=== PATIENT | female | born 1990 | race Caucasian/White ===

== ENCOUNTER 2020-06-01 07:07 | Emergency (ER) | payer OTHER, SELFPAY ==
--- NOTE | ~2020-06-01 | US_ITS ---
EXAMINATION: US venous doppler [facility] DATE: 06/01/2020 07:52 INDICATION: Left lower limb pain TECHNIQUE: Whitehead scale images without and with compression and Doppler images of the left lower extrem ity veins were obtained. COMPARISON: 07/08/2017 FINDINGS: The left common femoral vein, profunda femoral vein, femoral vein, popliteal vein, peroneal trunk, posterior tibial veins, and greater saphenous vein are patent. No Castle's cyst is identified. IMPRESSION: 1. Patent left lower extremity veins. No evidence of deep venous thrombosis. Reviewed, dictated and finalized at location A. SALES PROFESSIONAL
[2020-06-01 07:12] VITALS: BP 138/91; PULSE 129; RESP 16; TEMP 36.3; O2SAT 100
--- NOTE | 2020-06-01 08:21 | ED.GENADULT ---
HPI - General Adult General Chief complaint: Extremity Problem,Nontraumatic Stated complaint: calf pain x 2 weeks Time Seen by Provider: 06/01/20 07:16 History of Present Illness HPI narrative: Patient is a 29-year-old female who presents ER with discomfort behind her left knee. She reports she has been feeling a burning sensation. No swelling of the rest of the leg. No chest pain or shortness of breath at this time. No history of DVT. No rash. No alleviating factors. Called her insurance company and they told her to come to the ER. Related Data Home Medications Medication Instructions Recorded Confirmed No Home Medications 06/01/20 06/01/20 Allergies Allergy/AdvReac Type Severity Reaction Status Date / Time ibuprofen Allergy Severe THROAT Verified 01/10/18 06:58 SWELLS aspirin Allergy Intermediate Verified 01/10/18 06:58 Review of Systems Constitutional: Constitutional: Denies chills and Denies fever(s) Cardiovascular: Cardiovascular: Denies chest pain, Denies rapid heart rate and Denies radiating jaw, neck or arm pain Respiratory: Respiratory: Denies cough and Denies dyspnea Musculoskeletal: Musculoskeletal: Reports arthralgias and Reports joint swelling Psychiatric: Psychiatric: Reports anxiety PMFSH Past Medical History Medical History (Updated 06/01/20 @ 08:36 by Masoud Akers MD) Asthma Surgical History Surgical History (Updated 06/01/20 @ 08:23 by Masoud Akers MD) No pertinent past surgical history Exam Narrative: Exam Narrative: GENERAL: Well-appearing, well-nourished, and in no acute distress. HEAD: Normocephalic, atraumatic. CHEST: Clear to auscultation. No respiratory distress. HEART: Regular rate and rhythm. Normal peripheral pulses. EXTREMITIES: Normal range of motion. No edema. Mild swelling left posterior popliteal fossa when compared to the right side. SKIN: Warm, dry, no rash. NEURO: Alert and oriented x3. PSYCH: Normal mood and affect. Course Course Emergency Course: No DVT or Castle's cyst. Patient heart rate earlier in the visit likely elevated due to anxiety and has not normalized. No chest pain or shortness of breath. Discussed wearing an Alfredo wrap for compressive knee sleeve. Vital Signs Vital signs: Vital Signs Temperature 97.3 F L 06/01/20 07:12 Pulse Rate 129 H 06/01/20 07:12 Respiratory Rate 16 06/01/20 07:12 Blood Pressure 138/91 H 06/01/20 07:12 Pulse Oximetry 100 06/01/20 07:12 Temperature 97.3 F L 06/01/20 07:12 Pulse Rate 129 H 06/01/20 07:12 Respiratory Rate 16 06/01/20 07:12 Blood Pressure 138/91 H 06/01/20 07:12 Pulse Oximetry 100 06/01/20 07:12 Medical Decision Making Vital Signs Vital Signs: Vital Signs Temperature 97.3 F L 06/01/20 07:12 Pulse Rate 129 H 06/01/20 07:12 Respiratory Rate 16 06/01/20 07:12 Blood Pressure 138/91 H 06/01/20 07:12 Pulse Oximetry 100 06/01/20 07:12 Temperature 97.3 F L 06/01/20 07:12 Pulse Rate 129 H 06/01/20 07:12 Respiratory Rate 16 06/01/20 07:12 Blood Pressure 138/91 H 06/01/20 07:12 Pulse Oximetry 100 06/01/20 07:12 Imaging Data Radiologist's impression: ITS Impressions Venous Doppler Study 06/01/20 08:01 IMPRESSION: 1. Patent left lower extremity veins. No evidence of deep venous thrombosis. Discharge Plan Discharge Clinical Impression: Calf pain Patient Disposition: Home, Self-Care Condition: Stable Instructions: Muscle Strain (ED) Additional Instructions: The pain in your calf is likely related to a mild muscle strain. There is no evidence of DVT or Castle's cyst on your ultrasound. Wear compressive knee sleeve or Alfredo wrap to help with your discomfort and take Tylenol for pain. Prescriptions: No Action No Home Medications RF: 0 Follow-up/Referrals: Niall,Andria Dobbins MD [Primary Care Provider] - 1 Week
[2020-06-01 08:23] VITALS: BP 115/83; PULSE 98; RESP 16; O2SAT 100
== END 2020-06-01 08:59 | disposition home or self-care (01) ==
PROVIDERS: Emergency Provider Emergency Medicine; PCP Family Medicine
DX: M79.662 Pain in left lower leg (principal); J45.909 Unspecified asthma, uncomplicated
CPT/HCPCS: 93971; 99284

== ENCOUNTER 2021-09-27 06:12 | Emergency (ER) | payer SELFPAY ==
[2021-09-27] VITALS (28 sets, daily range): BP systolic 90–126; BP diastolic 56–81; PULSE 77–109; RESP 12–18; TEMP 37.2; O2SAT 97–100
--- NOTE | ~2021-09-27 | XR_ITS ---
EXAMINATION: XR chest 1V portable DATE: 09/27/2021 06:44 INDICATION: Chest pain TECHNIQUE: frontal view of the chest was obtained. COMPARISON: Chest radiograph dated 02/27/2017 FINDINGS: The lungs remain clear with no focal airspace opacities, pulmonary edema, pleural effusion or pneumot horax. The cardiomediastinal silhouette is normal. The patient is rotated slightly towards right whic h accentuates a mild thoracic levocurvature. IMPRESSION: 1. No acute cardiopulmonary disease. Reviewed, dictated and finalized at location A.
--- NOTE | ~2021-09-27 | CT_ITS ---
EXAMINATION: CTA chest PE protocol DATE: 09/27/2021 09:09 INDICATION: Chest pain, elevated d-dimer. TECHNIQUE: Computed tomography angiography (CTA) of the chest was performed with 100 mL Omnipaque-350 intravenous contrast timed to evaluate the pulmonary arteries. Coronal maximum intensity projection 3D-reconstructions were created by the technologist. Automated exposure control and iterative reconst ruction technique were employed. Exam dose: 137.43 mGy-cm total exam DLP. COMPARISON: 09/27/2021 portable AP chest FINDINGS: There is diagnostic contrast enhancement of the pulmonary arteries and no evidence of pulmo nary embolism. No thoracic aortic aneurysm or dissection. Normal heart size. No pericardial effusion. No hilar or mediastinal mass lesion or lymphadenopathy. No pulmonary infiltrate or consolidation or pulmonary mass lesion. Included skeletal structures are unremarkable. No suspicious osteolytic or osteoblastic lesions. Minimal degenerative spurring and mild levoscoliosi s of the thoracic spine. IMPRESSION: No evidence of pulmonary embolism Reviewed, dictated and finalized at Location [facility]. Reviewed, dictated and finalized at location A.
--- NOTE | 2021-09-27 06:30 | ECG_ITS ---
Measurements Intervals [place] Rate: 92 P: 73 DE: 153 QRS: 75 QRSD: 86 T: 54 QT: 330 QTc: 408 Interpretive Statements SINUS RHYTHM WITH MARKED SINUS ARRHYTHMIA LEFT ATRIAL ENLARGEMENT INCOMPLETE RIGHT BUNDLE BRANCH BLOCK BASELINE WANDER- V3-V5 BORDERLINE ECG Electronically Signed On 09-27-2021 8:13:57 CDT by Rosas Leavitt D.O.
[2021-09-27 06:51] LABS: Basophils Absolute Auto 0.1 K/mm3 (0.0-0.1); Eosinophils Absolute Auto 0.1 K/mm3 (0-0.3); Eosinophils Percent Auto 1.2 % (0-4.4); Hematocrit 43.1 % (37.0-47.0); Hemoglobin 14.3 g/dL (12.0-15.0); Immature Granulocyte Absolute 0.02 K/mm3 (0.00-0.031); Immature Granulocyte Percent A 0.2 % (0-0.5); Lymphocytes Absolute Auto 1.96 K/mm3 (0.9-3.2); Lymphocytes Percent Auto 23.8 % (18.3-44.2); Mean Corpuscular HGB Conc 33.2 g/dl (32-36); Mean Corpuscular Hemoglobin 31.3 pg (26-34); Mean Corpuscular Volume 94.3 fl (80-100); Mean Platelet Volume 9.7 fl (7.4-10.4); Monocytes Absolute Auto 1.5 K/mm3 (0.1-0.6); Monocytes Percent Auto 18.5 % (2.6-8.5); Neutrophils Absolute Auto 4.6 K/mm3 (1.3-6.7); Neutrophils Percent Auto 55.3 % (45.5-73.1); Platelet Count Result 194 k/mm3 (150-375); Red Blood Count 4.57 M/mm3 (4.2-5.4); White Blood Count 8.3 K/mm3 (4.5-10.0)
[2021-09-27 06:55] LABS: INR 1.1; Prothrombin Time 13.9 Seconds (11.1-14.7)
[2021-09-27 06:56] LABS: Partial Thromboplastin Time 32.9 SECONDS (22.3-36.8)
[2021-09-27 07:26] LABS: Alanine Aminotransferase 21 U/L (6-35); Albumin Level 4.9 g/dL (3.5-5.1); Alkaline Phosphatase 80 U/L (38-126); Anion Gap 7 mmol/L (8-16); Aspartate Amino Transferase 34 U/L (14-36); Bilirubin,Total 0.3 mg/dL (0.2-1.3); Blood Urea Nitrogen 7 mg/dL (7-17); Calcium 8.9 mg/dL (8.4-10.2); Carbon Dioxide 24 mmol/L (22-30); Chloride 106 mmol/L (98-107); Estimated CRCL calculation 102 ml/min; Estimated Glomerular Filt Rate > 60; Glucose 103 mg/dL (65-110); Lipase 49 U/L (23-300); Potassium 3.9 mmol/L (3.4-5.0); Sodium 137 mmol/L (137-145)
--- NOTE | 2021-09-27 07:34 | ED.CHESTPAIN ---
HPI - Chest Pain General Chief Complaint: Chest Pain Stated Complaint: chest pain Time Seen by Provider: 09/27/21 07:03 Source: patient History of Present Illness HPI narrative: Pain presents with multiple complaints her primary concern is her left-sided chest pain. She has had intermittent chest pain going on since yesterday its been constant since last night. Describes as an achy sensation primarily on the left side of her chest radiating to her shoulder worse with deep inspiration. Notes yesterday she noticed it more when with physical activity but since last night it has been the same with rest and physical activity. She also reports posterior neck pain and headache for the past few days reports subjective fevers at home. Reports cough and shortness of breath. Reports a coworker had neck pain headache and fevers as well and has been hospitalized and unsure as to what the diagnosis is. Patient denies any nausea vomiting or diaphoresis. She denies any significant family history. She denies any recent hospitalizations or surgeries. She denies prior history of blood clots or any estrogen therapy use. Patient reports overall she is feeling improved after she took some Tylenol this morning Related Data Home Medications Medication Instructions Recorded Confirmed No Home Medications 06/01/20 06/01/20 Allergies Allergy/AdvReac Type Severity Reaction Status Date / Time ibuprofen Allergy Severe THROAT Verified 01/10/18 06:58 ERWIN Review of Systems Review of Systems: CONSTITUTIONAL: Reports fevers and chills EYES: Denies visual changes, redness, or discharge. ENT: Denies rhinorrhea, congestion, sore throat, or otalgia. CARDIOVASCULAR: Denies palpitations, or edema. RESPIRATORY: Shortness of breath GASTROINTESTINAL: Denies abdominal pain, nausea, vomiting, or diarrhea. GENITOURINARY: Denies dysuria or hematuria. SKIN: Denies rash or itching. MUSCULOSKELETAL: Denies back pain, joint pain, or myalgia. NEUROLOGIC: Denies numbness, dizziness, or weakness. PSYCHIATRIC: Denies anxiety or depression. All systems reviewed & are unremarkable except as noted in HPI and below PMFSH Past Medical History Medical History Asthma Surgical History Surgical History No pertinent past surgical history Social History Social History (Updated 09/27/21 @ 07:37 by Fredrick Padgett MD) Smoking status: Never smoker Substance use: never Exam Narrative: GENERAL: Well-appearing, well-nourished, and in no acute distress. HEAD: Normocephalic, atraumatic. EYES: PERRLA and EOMI. ENT: Nares clear, no rhinorrhea or epistaxis. Mucous membranes moist. NECK: Supple. No masses. No JVD CHEST: Clear to auscultation. No respiratory distress. No wheezes rales or rhonchi HEART: Regular rate and rhythm. No murmur heard. Normal peripheral pulses. ABDOMEN: Soft, nontender, nondistended, normal active bowel sounds. EXTREMITIES: Normal range of motion. No edema. SKIN: Warm, dry, no rash. NEURO: No focal deficits. Alert and oriented x3. PSYCH: Normal mood and affect. Course Reevaluation(s) Reevaluation #1: Patient resting company results feeling improved results plan reviewed with patient. Patient is comfortable outpatient plan. Date: 09/27/21 Time: 09:37 Vital Signs Vital signs: Vital Signs Temperature 37.2 C 09/27/21 06:15 Pulse Rate 106 H 09/27/21 06:15 Respiratory Rate 18 09/27/21 06:15 Blood Pressure 126/81 09/27/21 06:15 Pulse Oximetry 100 09/27/21 06:15 Oxygen Delivery Room Air 09/27/21 06:15 Temperature 37.2 C 09/27/21 06:15 Pulse Rate 86 09/27/21 09:30 Respiratory Rate 12 09/27/21 09:30 Blood Pressure 99/62 L 09/27/21 09:48 Pulse Oximetry 100 09/27/21 09:30 Oxygen Delivery Room Air 09/27/21 06:43 MDM - Chest Pain MDM Narrative Medical decision making narrativ
[2021-09-27 07:38] LABS: Troponin I < 0.012 ng/mL (0.000-0.034)
[2021-09-27 08:04] LABS: SARS-CoV-2 RNA PCR Negative
[2021-09-27 08:11] LABS: D Dimer 0.87 ug/mL (<0.48)
[2021-09-27] MEDS: SODIUM CHLORIDE 0.9% IV 1,000 ML 999 ML IV CONT (08:51)
--- NOTE | 2021-09-27 09:02 | PC.NURSE ---
Pt to CT.
== END 2021-09-27 09:57 | disposition home or self-care (01) ==
PROVIDERS: Emergency Medicine; Emergency Provider Emergency Medicine; PCP Family Medicine
DX: R51.9 Headache, unspecified (principal); R07.9 Chest pain, unspecified; J45.909 Unspecified asthma, uncomplicated; Z20.822 Contact with and (suspected) exposure to COVID-19
CPT/HCPCS: 36415; 71045; 71275; 80053; 81025; 83690; 84484; 85025; 85380; 85610; 85730; 93005; 96360; 99284; C9803; J7030; Q9967; U0003; U0005

== ENCOUNTER 2022-10-16 01:04 | Emergency (ER) | payer OTHER, BC, MEDICAID, SELFPAY ==
[2022-10-16 01:09] VITALS: BP 112/90; PULSE 83; RESP 18; TEMP 36.6; O2SAT 100
[2022-10-16 02:48] VITALS: O2SAT 100
[2022-10-16 03:00] VITALS: O2SAT 100
[2022-10-16 03:15] VITALS: O2SAT 100
[2022-10-16 03:30] VITALS: O2SAT 100
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
[2022-10-16 04:11] VITALS: O2SAT 100
== END 2022-10-16 04:20 | disposition home or self-care (01) ==
PROVIDERS: Emergency Provider Preventive Medicine Aerospace Medicine; PCP Family Medicine
DX: S06.0X0A Concussion without loss of consciousness, initial encounter (principal); S80.11XA Contusion of right lower leg, initial encounter; J45.909 Unspecified asthma, uncomplicated; V49.40XA Driver injured in collision with unspecified motor vehicles in traffic accident, initial encounter
CPT/HCPCS: 99282

== ENCOUNTER 2023-07-26 03:07 | Emergency (ER) | payer BC, MEDICAID, SELFPAY ==
[2023-07-26 03:18] VITALS: BP 130/81; PULSE 108; RESP 16; TEMP 36.7; O2SAT 100
--- NOTE | 2023-07-26 03:48 | ED.GENADULT ---
HPI - General Adult General Chief complaint: Urogenital-Female Stated complaint: urinary pain, urgency, frequency Time Seen by Provider: 07/26/23 03:15 History of Present Illness HPI narrative: patient 32-year-old female who presents emergency department with chief complaint of dysuria. The patient reports that for the last day and half she has been having urinary frequency and burning with urination the patient reports he has had prior issues with urinary tract infections in the past with the last 1 being about 6 months ago Related Data Allergies Allergy/AdvReac Type Severity Reaction Status Date / Time ibuprofen Allergy Severe THROAT Verified 07/26/23 03:08 ERWIN Review of Systems Review of Systems: A 10 system review of systems was completed on the patient and is negative except for what is stated in the HPI. Nursing and ancillary documentation was reviewed. PMFSH Past Medical History Medical History Asthma Surgical History Surgical History No pertinent past surgical history Social History Social History Smoking status: Never smoker Substance use: never Living arrangements: with family Exam Narrative: GENERAL: Well-appearing, well-nourished, and in no acute distress. HEAD: Normocephalic, atraumatic. EYES: PERRLA and EOMI. ENT: Nares clear, no rhinorrhea or epistaxis. Mucous membranes moist. NECK: Supple. CHEST: Clear to auscultation. No respiratory distress. HEART: Regular rate and rhythm. No murmur heard. Normal peripheral pulses. ABDOMEN: Soft, nontender, nondistended, normal active bowel sounds. EXTREMITIES: Normal range of motion. No edema. SKIN: Warm, dry, no rash. NEURO: No focal deficits. Alert and oriented x3. PSYCH: Normal mood and affect. Course Vital Signs Vital signs: Vital Signs Temperature 36.7 C 07/26/23 03:18 Pulse Rate 108 H 07/26/23 03:18 Respiratory Rate 16 07/26/23 03:18 Blood Pressure 130/81 07/26/23 03:18 Pulse Oximetry 100 07/26/23 03:18 Oxygen Delivery Room Air 07/26/23 03:18 Temperature 36.7 C 07/26/23 03:18 Pulse Rate 108 H 07/26/23 03:18 Respiratory Rate 16 07/26/23 03:18 Blood Pressure 130/81 07/26/23 03:18 Pulse Oximetry 100 07/26/23 03:18 Oxygen Delivery Room Air 07/26/23 03:18 Medical Decision Making MDM Narrative Medical decision making narrative: differential diagnosis includes UTI, pyelonephritis, ureterolithiasis, pelvic infection the patient shows no signs intra-abdominal infection, no flank tenderness, urinalysis showed evidence of UTI without evidence of significant blood in the urine. Patient will be started on antibiotics and should follow up with her primary care provider Vital Signs Vital Signs: Vital Signs Temperature 36.7 C 07/26/23 03:18 Pulse Rate 108 H 07/26/23 03:18 Respiratory Rate 16 07/26/23 03:18 Blood Pressure 130/81 07/26/23 03:18 Pulse Oximetry 100 07/26/23 03:18 Oxygen Delivery Room Air 07/26/23 03:18 Temperature 36.7 C 07/26/23 03:18 Pulse Rate 108 H 07/26/23 03:18 Respiratory Rate 16 07/26/23 03:18 Blood Pressure 130/81 07/26/23 03:18 Pulse Oximetry 100 07/26/23 03:18 Oxygen Delivery Room Air 07/26/23 03:18 Lab Data Labs: Lab Results 07/26/23 Range/Units 03:22 Urine Color Yellow (Yellow) Urine Appearance Clear (Clear) Urine pH 7.0 (5.0-9.0) Ur Specific [place] 1.004 (1.001-1.035) Urine Protein Negative (Negative) mg/dL Urine Glucose (UA) Negative (Negative) mg/dL Urine Ketones Negative (Negative) mg/dL Ur Blood (Man) 3+ H (Negative) Urine Nitrate Negative (Negative) Urine Bilirubin Negative (Negative) Urine Urobilinogen 0.2 (<2.0) mg/dL Add Ur Microanalysis Reviewed
[2023-07-26 04:30] LABS: Appearance Urine Clear (Clear); Bacteria Urine 3+ /hpf; Bilirubin Urine Negative (Negative); Blood Urine 3+ (Negative); Color Urine Yellow (Yellow); Glucose Urine UA Negative (Negative); Ketones Urine Negative (Negative); Leukocyte Esterase Ur 3+ LEU/UL (Negative); Need Manual Microscopic Reviewed; Nitrate Urine Negative (Negative); Non Pathogenic Casts 0-2; Protein Urine Negative (Negative); RBC Urine 0-2 /hpf (0-2); Squamous Epithelial Cell Urine None Seen /hpf (Few); Urobilinogen Urine 0.2 mg/dL (<2.0); WBC Urine 51-100 /hpf (0-3)
[2023-07-26 04:31] LABS: Add Urine Microscopic? YES; Specific Grav Ur 1.004 (1.001-1.035)
[2023-07-26] MEDS: ACETAMINOPHEN 500 MG TABLET 1000 MG PO (04:33)
[2023-07-26] MEDS: CEPHALEXIN 500 MG CAPSULE PO (04:41)
== END 2023-07-26 04:49 | disposition home or self-care (01) ==
PROVIDERS: Emergency Provider Emergency Medicine; PCP Family Medicine
DX: N39.0 Urinary tract infection, site not specified (principal); J45.909 Unspecified asthma, uncomplicated
CPT/HCPCS: 81001; 81025; 87077; 87086; 87088; 87186; 99283; A9270

== ENCOUNTER 2023-11-08 08:24 | Outpatient (CLI) | payer BC, MEDICAID, SELFPAY ==
--- NOTE | ~2023-11-08 | MMUS_ITS ---
EXAMINATION: MM diagnostic idania BI w jozef, US breast BI complete HISTORY: Palpable right breast lump TECHNIQUE: Additional 3-D tomosynthesis images of the breasts were performed and synthetic 2-D images were generated. CAD analysis was submitted and interpreted. High resolution bilateral complete breas t ultrasound was performed. COMPARISON: No prior studies for comparison. BREAST PARENCHYMAL COMPOSITION: Dense: The breasts are extremely dense, which lowers the sensitivity of mammography. FINDINGS: MAMMOGRAPHIC FINDINGS: There are no suspicious masses, calcifications or architectural distortion in either breast to sugges t malignancy. ULTRASOUND: Complete US of all 4 quadrants of the breast/s and retroareolar region was reviewed. Right breast: In the area of palpable concern in the right breast at 11:00, 4 cm from the nipple ther e is an irregular shaped hypoechoic mass measuring 9 x 7 x 5 mm without posterior features or interna l vascularity. Left breast: At 2:00, 6 cm from the nipple there is a 7 mm complicated cyst. At 7:00, 5 cm from the n ipple there is an oval hypoechoic 4 mm mass with low level internal echoes, likely complicated cysts. IMPRESSION: 1. Irregular shaped 9 mm right breast mass at 11:00, 4 cm from the nipple. Ultrasound-guided right br east biopsy recommended. 2. Probable benign left breast masses seen by ultrasound. Six-month follow-up left breast ultrasound recommended. BI-RADS category 4, suspicious findings. Reviewed, dictated and finalized at location B. IMPRESSION: 1. Irregular shaped 9 mm right breast mass at 11:00, 4 cm from the nipple. Ultr asound-guided right breast biopsy recommended. 2. Probable benign left breast masses seen by ultrasound. Six-month follow-up l eft breast ultrasound recommended. BI-RADS category 4, suspicious findings.
== END 2023-11-08 08:25 ==
PROVIDERS: PCP Nurse Practitioner Family; Visit Provider Nurse Practitioner Family
DX: N63.11 Unspecified lump in the right breast, upper outer quadrant (principal); R92.8 Other abnormal and inconclusive findings on diagnostic imaging of breast
CPT/HCPCS: 76641; 77062; 77066; G0279